=== PATIENT | female | born 1985 ===

== ENCOUNTER 2023-07-21 15:04 | Outpatient (AMB) | payer BC, SELFPAY ==
--- NOTE | 2023-07-21 15:10 | A.OFFVIS_ITS ---
Intake Vital Signs 07/21/23 15:14 Height 6 ft 3 in Weight 326 lb BMI 40.7 BP 126/74 Blood Pressure Location Rt brachial Position Sitting Pulse 74 Pulse Source Pulse Oximeter Pulse Oximetry (%) 99 Oxygen Delivery Method Room Air Intake Visit Reasons: E-ANALYSIS INTERN: Migraines w/aura-LVM Intake Note: Patient presents for migraines. patient gets migraines about 15 days per month brought a diary with dates. Allergies No Known Allergies Allergy (Verified 07/21/23 15:15) Medication List - Last Reconciled 07/21/23 by DEIDRA Frederick coQ10 (ubiquinol) (Qunol [place] CoQ10) 100 mg PO BID magnesium 250 mg PO DAILY propranolol ER 80 mg PO BEDTIME sumatriptan succinate take 1 tab at onset of headache; if no relief may repeat 1 tab after at least 2 hrs; max = 4 tabs/24 hr PO ursodiol 200 mg PO BID HPI HPI Comments History of Present Illness Details Right-handed 37-yr-old female presents for new pt evaluation of headache disorder. Pt reports headaches for a long time, but worsened approx 2 yrs ago w/o known c ause. Has not previously seen neurology. No h/o MRI. Pt also endorses:? Chronic back pain- uses a cane, , Mood d/o: anxiety, Sleep d/o: FABIO on CPAP, GI d/o: prone to abd bloating, Constipation- sometimes, Leg Cramps- leg sif sitting still for a while. Family history of migraine or other headache disorder: Mother had migraine. Pertinent denials include: Musculoskeletal disorders or injury, History of concussion/head injury, Respiratory d/o, CV disease Clotting or hematology d/o, Endocrine or metabolic d/o, History of seizure, syncope, or drop attacks GI d/o. Headache questionnaire:? Typical headache characteristics: Prodrome symptoms: May feel clumsy and confused a few hours before headache Aura: Seeing lights, pot/streak of bright light. Rarely can see crescent of light. Pain intensity: [id number], Location, quality, characteristics: Usually behind right eye, less often left eye, or or center. Pressure. Associated symptoms? Photophobia, phonophobia, dizziness, difficulty c oncentrating, word finding difficulties, fatigue, yawning, activity intolerance Postdrome: Slowly subsides, ebbs and flows Triggers: skipping meals, certain loud sounds, stress, sleep deprivation, deh ydration Positional trigger: exacerbates headache. Time of day: Often, not always, 4-5 hours after waking up, Duration and Frequency: 1-4 days. In the last few months- 13- 21 headache days per month. How does headache impact your life? When severe, cannot function in any capacity. Current acute medication use/interventions: Generic Excedrin. Current preventative medication use: Propranolol ER 80mg- not sure if effective. Denies lightheadedness. Mag 500mg qd. Non-pharmacological interventions: Sleep in a dark/quiet room, frequent snacking- marco antonio salty foods help. Occasionally alcohol can help. Lifestyle considerations: Sleep routine: Bedtime: varies, Wake-up time: varies, but typically sleeps 8- 9hrs w/ CPAP. F/b [facility]. Sleep difficulties: sleeping well w/ CPAP. Caffeine use: 1 large cups per day in am. Substance use: Alcohol- twice a month, beer is helpful for the migraine. Exercise:?Physically active around the home. 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 Head: Yes normocephalic Resp Effort & Inspection: normal respiratory effort and able to speak in complete sentences Neuro Other: Photophobia Bilateral posterior cervical tightness Steady gait with cane General: patient oriented x3 Cranial nerves: Yes CN's II-XII intact bilaterally Cognition (Neuro): normal cognition Motor exam (neuro): 5/5 motor strength present throughout Deep tendon reflexes (DTR's): Right triceps reflex intensity grade: 2+, Left triceps reflex intensity grade: 2+, Rt Biceps (C5, C6): 2+, Left biceps reflex intensity grade: 2+, Right brachioradialis reflex intensity grade: 2+, Left brachioradialis reflex intensity grade: 2+, Right patellar reflex intensity grade: 2+ and Left patellar reflex intensity grade: 2+ Coordination: [id number] test normal, tandem gait normal and Romberg test negative Pupils: Normal pupillary reactivity/response: bilateral Psych Appearance: grossly normal Mental Status: mental status grossly normal Speech and movement: Normal speech and movement present Affect: normal affect Attitude: cooperative Thought process: Normal thought process present Assessment & Plan Assessment & Plan (1) Migraine with aura: Code(s): G43.109 - Migraine with aura, not intractable, without status migrainosus (2) Chronic migraine without aura: Code(s): G43.709 - Chronic migraine without aura, not intractable, without status migrainosus (3) Worsening headaches: Code(s): R51.9 - Headache, unspecified Plan Pt advised to undergo brain MRI w/o to assess for secondary etiologies of worsening headaches. For overall headache management: Discussed importance of good self-care, including but not limited to maintaining a healthy diet, adequate fluid intake, adequate sleep, and engaging in regular physical activity. For headache triggers: Track headaches, especially after any treatment regimen changes. Migraine [employer] is one of many headache tracking apps. Light sensitivity tips: Patient may try blue light filtering glasses, green glasses, green light therapy.. Avoid wearing sunglasses inside. For acute headache treatment: Discussed importance of taking acute medications at the first sign of headache, however stressed importance of avoiding acute medication overuse (especially with combined headache medications). Trial Sumatriptan 100mg tab, 1/2 - 1 tab (50-100mg) at onset of headache, may repeat in 2 hours. Max of 2 tabs (200mg) per 24 hours. May adjunct with OTC Tylenol 650mg q 4 hours, Ibuprofen 600mg q 6 hours, or Naproxen 440mg q 12 hrs prn. Potential adverse effects of triptans, including but not limited to nausea, fatigue, chest tightness/tingling (usually passes within a few minutes), medication overuse headaches.s. Previous acute migraine medication trials: Sumatriptan 50mg- ineffective. Acute migraine medication contraindications: None at this time For headache prevention medication: Discussed that preventative medications should be taken routinely as prescribed for best effect, it may take several weeks for full effect to take effect. Start Riboflavin 400mg qam Continue Magnesium 500mg qd. Increase Propranolol ER from 80mg qd to 120mg qd. Previous migraine prevention medication trials: None Migraine prevention medication contraindications: None at this time Pt to follow-up in 3 months or sooner prn. Orders: Orders MR head/brain wo con 07/21/23 R51.9 - Headache, unspecified, E78.5 - Hyperlipidemia, unspecified, E66.01 - Morbid (severe) obesity due to excess calories, G43.109 - Migraine with aura, not intractable, without status migrai nosus Medications: New riboflavin (vitamin B2) 400 mg PO DAILY 30 tabs 6RF 30 days propranolol ER 120 mg PO DAILY 30 caps 3RF 30 days sumatriptan succinate 50 - 100 mg orally at onset of headache, may repeat in 2 hrs PRN; max 2 tabs per day or 4 tabs/week (may take with Ibuprofen or Naproxen) 12 tabs 6RF migraine headache 30 days Coding Level of Care Code New Pt Level 4 (13987) Diagnoses Migraine with aura G43.109 Chronic migraine without aura G43.709 Worsening headaches R51.9
[2023-07-21 15:14] VITALS: BP 126/74; PULSE 74; O2SAT 99; BMI 40.7
== END 2023-07-21 16:32 | disposition home or self-care (01) ==
PROVIDERS: PCP Nurse Practitioner Family; Visit Provider Nurse Practitioner Family
DX: G43.109 Migraine with aura, not intractable, without status migrainosus (principal); G43.709 Chronic migraine without aura, not intractable, without status migrainosus; R51.9 Headache, unspecified
CPT/HCPCS: 99204

== ENCOUNTER → 2023-07-21 15:04 | Outpatient (BNVA) | payer BC, SELFPAY | PROVIDERS: PCP Nurse Practitioner Family; Visit Provider Nurse Practitioner Family ==

== ENCOUNTER 2023-09-07 15:15 | Outpatient (AMB) | payer BC, SELFPAY ==
--- NOTE | 2023-09-07 14:34 | MHC.PC.OV ---
Vital Signs 09/07/23 15:19 Height 6 ft 3 in Weight 338 lb BMI 42.2 BP 118/80 Blood Pressure Location Lt brachial Position Sitting Pulse 84 Pulse Source Pulse Oximeter Pulse Oximetry (%) 96 Oxygen Delivery Method Room Air Intake Visit Reasons: New patient-Migraines Intake Note: Paitent here to establish care Allergies No Known Allergies Allergy (Verified 09/07/23 15:41) Medication List - Last Reconciled 09/07/23 by JAVY Carrera coQ10 (ubiquinol) (Qunol [place] CoQ10) 100 mg PO BID estradiol 1 patch transdermal 2XW magnesium 500 mg PO DAILY propranolol ER 120 mg PO DAILY 30 days riboflavin (vitamin B2) 400 mg PO DAILY 30 days spironolactone 100 mg PO BID sumatriptan succinate 50 - 100 mg orally at onset of headache, may repeat in 2 hrs PRN; max 2 tabs per day or 4 tabs/week (may take with Ibuprofen or Naproxen) 30 days ursodiol 200 mg PO BID Tobacco use date assessed: 09/07/23 Dental Screening Dental Screen Date: 09/07/23 Did you have a dental visit in the last 12 months?: No Did you have a dental problem in the last 6 months where you did not have access to dental care?: No Was dental information given to patient?: Patient has dentist HPI New patient-Migraines HPI Details New pt is here for a PE. 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 Will order labs. Pt sees neurology due to migraines. Pt c/o lower transverse back pain. She reports some pain down her BLE as well. Will order XR and refer to PT. Denies any signs of cauda equina. Pt reports hemorrhoids. She has tried OTC remedies with no relief. Will send hydrocortisone cream. 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 1. Little interest or pleasure in doing things: not at all 2. Feeling down, depressed, or hopeless: several days 3. Trouble falling or staying asleep, or sleeping too much: more than half the days 4. Feeling tired or having little energy: nearly every day 5. Poor appetite or overeating: not at all 6. Feeling bad about yourself - or that you are a failure or have let yourself or your family down: not at all 7. Trouble concentrating on things, such as reading the newspaper or watching television: several days 8. Moving or speaking so slowly that other people could have noticed. Or the opposite - being so fidgety or restless that you have been moving around a lot more than usual: not at all 9. Thoughts that you would be better off or of hurting yourself in some way: not at all Total score: 7 Depression Screening Interpretation: Negative Depression Screening Done: Yes [id number] - PHQ-9 Billing: Yes Source: Developed by Drs. Christophe Fuentes, Kerrie Oconnell, Alonzo Avina and colleagues, with an educational remington from [employer]. Thrive Questionnaire Date Thrive assessed: 09/07/23 I am a: Patient What is your living situation today?: I have a steady place to live Within the past 12 months, did the food you bought not last and you didn't have the money to get more?: Never true Within the past 12 months, did you worry whether your food would run out before you got money to buy more?: Never true Do you have trouble paying for medicines?: No Do you have trouble getting transportation to medical appointments?: No Do you have trouble paying your heating and electricity bill?: No Do you have trouble taking care of your child, family member or friend?: No Do you have trouble with day-to-day activities such as bathing, preparing meals, shopping, managing finances, etc.?: No Are you currently unemployed and looking for a job?: No Are you interested in more education?: No Currently or been in a relationship where the following occur: I choose not to answer this question THRIVE Score: 0 AUDIT C Alcohol Use Questionnaire (AUDIT-C) 1. How often do you have a drink containing alcohol?: 2-4 times a month 2. How many drinks containing alcohol do you have on a typical day when you are drinking?: 1 or 2 3. How often do you have six or more drinks on one occasion?: Never Total Score: 2 Score Reviewed/Action Taken: No GILBERTO-7 AMB Questionnaire GILBERTO-7 Date GILBERTO - 7 assessed: 09/07/23 Feeling nervous, anxious, or on edge: 2 = More than half the days Not being able to stop or control worryin = Several days Worrying too much about different things: 1 = Several days Trouble relaxin = Several days Being so restless that it is hard to sit still: 0 = Not at all Becoming easily annoyed or irritable: 2 = More than half the days Feeling afraid as if something awful might happen: 0 = Not at all Total GILBERTO-7 score (0-4 normal; 5-9 mild; 10-14 moderate; 15-21 severe): 7 Source: Developed by Drs. Christophe Fuentes, Kerrie Oconnell, Alonzo Avina and colleagues, with an educational remington from [employer]. GILBERTO-7 Assessment Billing GILBERTO-7 Assessment Tool: GILBERTO-7 Assessment 65613 Review of Systems Const Denies chills and Denies fever(s) Eyes Denies blurry vision ENT Denies vertigo, Denies dizziness and Denies sore throat Card Denies chest pain at rest, Denies chest pain with activity, Denies diaphoresis, Denies dyspnea and Denies dyspnea on exertion Resp Denies cough, Denies dyspnea, Denies dyspnea on exertion and Denies wheezing GI Denies abdominal pain, Denies melena, Denies hematochezia, Denies constipation, Denies diarrhea and Denies loose stools Denies hematuria Musc Denies numbness and Denies tingling Skin/Breast Denies lesions Neuro Denies vertigo, Denies dizziness, Denies numbness and Denies tingling Psych Denies anxiety, Denies depression, Denies homicidal ideation, Denies suicidal ideation and Denies other (substance abuse) Aller/Immun Denies wheezing Physical exam (Primary Care) Vital Signs: Last Vital Signs Pulse 84 09/07/23 15:19 BP 118/80 09/07/23 15:19 Pulse Ox 96 09/07/23 15:19 Oxygen Delivery Method Room Air 09/07/23 15:19 BMI result Body Mass Index 42.2 Tobacco/Smoking Status: Tobacco use Status Tobacco use date assessed 09/07/23 09/07/23 15:23 Patient Tobacco Use Status Never used Tobacco 09/07/23 14:36 e-Cigarette/Vaping Use Never Used 09/07/23 15:23 Depression Screening Interpretation: Negative Currently or been in a relationship where the following occur: I choose not to answer this question Const General: cooperative Nutritional Appearance: well nourished Orientation/consciousness: patient oriented x3 Limitations: ambulation with cane HENMT Head: Yes normal to inspection, Yes normocephalic and Yes atraumatic Ears: TM's normal bilaterally Eyes General: appearance normal, both eyes and all related structures Alignment and Position: alignment normal and position normal Neck Neck: Yes normal visual inspection and Yes no lymphadenopathy Thyroid: Thyroid normal Resp Effort & Inspection: normal respiratory effort Auscultation: clear to auscultation bilaterally Cardio Rate: regular rate Rhythm: regular rhythm Heart sounds: S1 normal heart sound present, S2 normal heart sound present and no murmurs GI Palpation (GI): Soft to palpation and nontender Auscultation: normal bowel sounds Other: difficult to palpate right testicle, left testicle present, no penile lesions noted. Back/Spine/Pelvis Other: no lower back pain exacerbated with heel and toe walking, neg straight leg raises. Skin Rashes: no rashes Neuro General: patient oriented x3, moves all extremities, no focal motor deficits and deep tendon reflexes 2+ bilaterally Romberg Test: Negative Psych Appearance: grossly normal Mental Status: mental status grossly normal Speech and movement: Normal speech and movement present Affect: normal affect Attitude: cooperative Thought process: Normal thought process present Thought content: Normal thought content present Insight: Good insight present (Psych) Judgement: Good judgement present (Psych) Assessment and Plan Assessment & Plan (1) Lower back pain: Code(s): M54.50 - Low back pain, unspecified Plan: XR ordered, referred to PT (2) Encounter for routine adult physical exam with abnormal findings: Code(s): Z00.01 - Encounter for general adult medical examination with abnormal findings Plan The patient agreed to the use of a manager medical affairs for this encounter. Scribed for JAVY Price by Renetta Kramer manager medical affairs, on 09/07/2023 at 15:30 EST. Orders: Orders Lipid Panel Today Z00.00 - Encounter for general adult medical examination without abnormal findings PT Evaluation and Treatment Today M54.50 - Low back pain, unspecified Complete Blood Count Auto Diff Today Z00.00 - Encounter for general adult medical examination without abnormal findings Comprehensive [place]. Panel Fast Today Z00.00 - Encounter for general adult medical examination without abnormal findings TSH reflex Free T4 Today Z00.00 - Encounter for general adult medical examination without abnormal findings UA CC w/rflx Micro + Cult Today Z00.00 - Encounter for general adult medical examination without abnormal findings XR lumbar spine 2-3V Today M54.50 - Low back pain, unspecified Medications: New hydrocortisone 2.5% 1 appl [place] BID-QID PRN 30 grams 0RF hemorrhoids hydrocortisone 2.5% 1 appl FL BID-QID PRN 30 grams 0RF hemorrhoids Coding Level of Care Code New Pt Prev Care 18-39yr([id number] Diagnoses Lower back pain M54.50 Encounter for routine adult physical exam with abnormal findings Z00.01 Additional Codes GILBERTO-7 Assessment Billing - GILBERTO-7 Assessment Tool: GILBERTO-7 Assessment [id number] ([id number])
[2023-09-07 15:19] VITALS: BP 118/80; PULSE 84; O2SAT 96; BMI 42.2
== END 2023-09-07 15:50 | disposition home or self-care (01) ==
PROVIDERS: PCP Nurse Practitioner Family; Visit Provider Nurse Practitioner Family
DX: Z00.01 Encounter for general adult medical examination with abnormal findings (principal); M54.50 Low back pain, unspecified
CPT/HCPCS: 99213; 99385

== ENCOUNTER 2023-09-09 12:53 | Outpatient (REF) | payer BC, SELFPAY ==
--- NOTE | ~2023-09-09 | XR_ITS ---
EXAMINATION: XR LUMBOSACRAL SPINE CLINICAL INFORMATION: Low back pain. COMPARISON: None available. TECHNIQUE: Three views of the lumbosacral spine. FINDINGS: Facet arthritis in the lower lumbar spine Possible facet arthritis at L5-S1 is difficult to evaluate due to overlying bony structures. Grade 1 retrolisthesis of L5 on S1. Mild multilevel lumbar spondylosis with loss of disc space height at L5-S1. Bilateral sacroiliac joints are maintained. XR/XR lumbar spine 2-3V IMPRESSION: 1. Mild multilevel lumbar spondylosis with loss of disc space height at L5-S1. 2. Facet arthritis in the lower lumbar spine.
[2023-09-09 16:03] LABS: MANUAL DIFF FLAG NO
[2023-09-09 16:31] LABS: Basophils Absolute Auto 0.1 X10*3/uL (0.0-0.2); Basophils Percent Auto 0.8 % (0-2); Eosinophils Absolute Auto 0.5 X10*3/uL (0.0-0.4); Eosinophils Percent Auto 5.5 % (0-4); Hematocrit 44.7 % (37.0-47.0); Hemoglobin 14.9 g/dl (12.0-16.0); Imm Gran Abs Auto 0.04 X10*3/uL (0.00-0.03); Imm Gran Pct Auto 0.4 % (0.0-0.4); Lymphocytes Absolute Auto 2.1 X10*3/uL (1.2-4.9); Lymphocytes Percent Auto 23.2 % (20-40); Mean Corpuscular HGB Conc 33.3 g/dl (31.0-35.0); Mean Corpuscular Volume 89.9 fL (80.0-98.0); Mean Platelet Volume 10.2 fL (9.4-12.3); Monocytes Absolute Auto 0.8 X10*3/uL (0.1-1.2); Monocytes Percent Auto 8.7 % (2-11); Neutrophils Absolute Auto 5.7 x10*3/uL (2.0-8.3); Neutrophils Percent Auto 61.4 % (45-73); Platelet Count 338 X10*3/uL (160-400); Red Blood Count 4.97 X10*6/uL (4.20-5.50); Red Cell Distribution Width 13.1 % (11.0-16.0); White Blood Count 9.2 X10*3/uL (4.8-10.8)
[2023-09-09 16:38] LABS: Appearance Urine Clear; Color Urine Yellow; Glucose Urine UA Negative (Negative); Leukocyte Esterase Urine Negative (Negative); Nitrite Urine Negative (Negative); PH 6.5 (5.0-9.0); Specific Gravity - Urine <= 1.005 (1.005-1.025); Urine Blood Negative (Negative); Urine Ketones Negative (Negative); Urine Protein Negative (Neg-Trace)
[2023-09-09 16:49] LABS: Alanine Aminotransferase 50 U/L (0-31); Albumin Level 4.5 g/dL (3.5-5.0); Alkaline Phosphatase 70 U/L (39-117); Anion Gap 13 (12-20); Aspartate Amino Transferase 27 U/L (5-31); Bilirubin Total 0.6 mg/dL (0.0-1.0); Blood Urea Nitrogen 11 mg/dL (9-16); Calcium 10.1 mg/dL (8.4-10.2); Carbon Dioxide 26 mmol/L (22-29); Chloride 104 mmol/L (96-108); Cholesterol 193 mg/dL (<200); Estimated Glomerular Filt Rate > 60; Glucose Fasting 114 mg/dL (60-99); HDL Cholesterol 39 mg/dL (>40); LDL Cholesterol Calculated 114 mg/dL (<100); Potassium 4.4 mmol/L (3.3-5.1); Sodium 139 mmol/L (135-145); Total Protein 7.9 g/dL (6.5-8.0); Triglycerides 202 mg/dL (<150)
[2023-09-09 17:07] LABS: TSH reflex Free T4 1.72 uIU/mL (0.32-4.0)
== END 2023-09-09 12:54 | disposition home or self-care (01) ==
LOC: HO.HMGCX 12:53
PROVIDERS: PCP Nurse Practitioner Family; Visit Provider Nurse Practitioner Family
DX: Z00.00 Encounter for general adult medical examination without abnormal findings (principal); M54.50 Low back pain, unspecified
CPT/HCPCS: 36415; 72100; 80053; 80061; 81003; 84443; 85025

== ENCOUNTER 2023-10-07 11:19 | Outpatient (REF) | payer BC, SELFPAY ==
--- NOTE | ~2023-10-07 | US_ITS ---
EXAMINATION: US ABDOMEN COMPLETE CLINICAL INFORMATION: Abnormal levels of other serum enzymes. COMPARISON: None available. TECHNIQUE: Real-time imaging of the abdominal viscera. Technically suboptimal study secondary to body habitus. FINDINGS: PANCREAS: Limited visualization of pancreatic tail and head. Imaged portion of pancreatic body is unremarkable. ABDOMINAL AORTA: Limited visualization. Imaged portions of abdominal aorta are unremarkable. INFERIOR VENA CAVA: Visualized portions are normal. LIVER: Right hepatic lobe measures 21.7 cm, hepatomegaly. Increased hepatic parenchymal heterogeneity and echogenicity could be associated with hepatocellular disease/hepatic steatosis and severely limits visualization. Correlation with liver function tests and clinical exam recommended to determine further management. GALLBLADDER: Multiple gallstones measuring up to 2.5 cm. No gallbladder wall thickening. COMMON BILE DUCT: Normal in caliber measuring 0.44 cm in diameter. RIGHT KIDNEY: No hydronephrosis. No renal calculi. Limited visualization. The kidney measures 13.0 cm in maximum dimension. LEFT KIDNEY: No hydronephrosis. No renal calculi. Limited visualization. The kidney measures 12.8 cm in maximum dimension. SPLEEN: Normal. The spleen measures 11.7 cm in maximum dimension. FREE FLUID: None. US/US abdomen complete IMPRESSION: 1. Hepatomegaly. Increased hepatic parenchymal heterogeneity and echogenicity could be associated with hepatocellular disease/hepatic steatosis and severely limits visualization. Correlation with liver function tests and clinical exam recommended to determine further management. 2. Cholelithiasis.
== END 2023-10-07 11:20 | disposition home or self-care (01) ==
LOC: HO.HMGCX 11:19
PROVIDERS: PCP Nurse Practitioner Family; Visit Provider Nurse Practitioner Family
DX: R74.8 Abnormal levels of other serum enzymes (principal)
CPT/HCPCS: 76700

== ENCOUNTER 2023-11-01 07:29 | Outpatient (AMB) | payer BC, SELFPAY ==
--- NOTE | 2023-11-01 07:34 | A.OFFVIS_ITS ---
Vital Signs 11/01/23 07:35 Height 6 ft 3 in Intake Visit Reasons: 3 mon follow up-LVM Intake Note: Patient presents for 3 month follow up. Migraines are continuing not any better. Allergies No Known Allergies Allergy (Verified 11/01/23 07:40) Medication List - Last Reconciled 11/01/23 by DEIDRA Frederick coQ10 (ubiquinol) (Qunol [place] CoQ10) 100 mg PO BID estradiol 4 patches transdermal 2XW hydrocortisone 2.5% 1 appl GA BID-QID PRN magnesium 500 mg PO DAILY propranolol ER 120 mg PO DAILY 30 days riboflavin (vitamin B2) 400 mg PO DAILY 30 days spironolactone 100 mg PO BID sumatriptan succinate 50 - 100 mg orally at onset of headache, may repeat in 2 hrs PRN; max 2 tabs per day or 4 tabs/week (may take with Ibuprofen or Naproxen) 30 days ursodiol 200 mg PO BID HPI Comments Details: 37-yr-old female presents for f/u visit. Pt denies any significant interval medical changes. Brain MRI was normal. Pt reports she is tolerating the increase in Propranolol well, however has not noticed significant benefit from use. She continues to have frequent migraine attacks- 25 migraine days in the past month, some were not as severe as prior. Sumatriptan 100mg has been effective at times, but does cause drowsiness and muscle aches. Ibuprofen helps the muscle aches- but does not fully nicci them. Baseline headache characteristics: Prodrome symptoms: May feel clumsy and confused a few hours before headache Aura: Seeing lights, pot/streak of bright light. Rarely can see crescent of light. Pain intensity: [id number]-[id number]-[id number]. Location, quality, characteristics: Usually behind right eye, less often left eye, or or center. Pressure. Associated symptoms: Photophobia, phonophobia, dizziness, difficulty concentrating, word finding difficulties, fatigue, yawning, activity intolerance Postdrome: Slowly subsides, ebbs and flows. [facility] Medical History Transgender woman on hormone therapy HLD (hyperlipidemia) Family History (Reviewed 11/01/23 @ 07:41 by Cydney Thao [facility]) Father HTN (hypertension) Social History Housing: House Alcohol intake: current Patient Tobacco Use Status: Never used Tobacco e-Cigarette/Vaping Use: Never Used service: No Current occupational status: employed Current occupational exposures/hazards: No Cognitive needs: No Hearing needs: No Vision needs: No Physical Exam Const General: cooperative and no acute distress Orientation/consciousness: patient oriented x3 Resp Effort & Inspection: normal respiratory effort and able to speak in complete sentences Neuro Other: Photophobic General: patient oriented x3 Cranial nerves: Yes CN's II-XII intact bilaterally Cognition (Neuro): normal cognition Psych Appearance: grossly normal Mental Status: mental status grossly normal Speech and movement: Normal speech and movement present Affect: normal affect Attitude: cooperative Assessment & Plan Assessment & Plan (1) Chronic migraine without aura: Code(s): G43.709 - Chronic migraine without aura, not intractable, without status migrainosus Category: Medical (2) Migraine with aura: Code(s): G43.109 - Migraine with aura, not intractable, without status migrainosus Category: Medical Plan Reviewed brain MRI- normal ? For overall headache management: Discussed importance of good self-care, including but not limited to maintaining a healthy diet, adequate fluid intake, adequate sleep, and engaging in regular physical activity. For headache triggers: Track headaches, especially after any treatment regimen changes. Migraine [employer] is one of many headache tracking apps. Light sensitivity tips: Patient may try blue light filtering glasses, green glasses, green light therapy.. Avoid wearing sunglasses inside. ? For acute headache treatment: Discussed importance of taking acute medications at the first sign of headache, however stressed importance of avoiding acute medication overuse (especially with combined headache medications). Stop Sumatriptan 100mg tab- not always effective and causes drowsiness/muscle aches. Trial Rizatriptan 10mg prn, MR in 2 hrs. Previous acute migraine medication trials: Sumatriptan 50mg- ineffective. Sumatriptan 100mg tab- not always effective and causes drowsiness/muscle aches. Acute migraine medication contraindications: None at this time ? For headache prevention medication: Continue Riboflavin 400mg qam Continue Magnesium 500mg qd. Continue Propranolol ER 120mg qd- would not increase further d/t HR in 60s. Trial topiramate 25-50mg qhs. Previous migraine prevention medication trials: None Migraine prevention medication contraindications: None at this time, however pt cuatious to try medications such as Amitriptyline which can cause drowsiness. ? Pt to follow-up in 6 months or sooner prn. Medications: New rizatriptan max 2 tabs per day or 4 tabs per week 5 - 10 mg (0.5 - 1 x 10 mg) PO Q2H 21 days PRN 12 tabs 6RF migraine headache topiramate 25 - 50 mg (1 - 2 x 25 mg) PO BEDTIME 30 days 60 tabs 6RF Refilled propranolol ER 120 mg PO DAILY 30 days 30 caps 6RF Coding Level of Care Code Est Pt Level 4 (49991) Diagnoses Chronic migraine without aura G43.709 Migraine with aura G43.109
== END 2023-11-01 08:14 | disposition home or self-care (01) ==
PROVIDERS: PCP Nurse Practitioner Family; Visit Provider Nurse Practitioner Family
DX: G43.709 Chronic migraine without aura, not intractable, without status migrainosus (principal); G43.109 Migraine with aura, not intractable, without status migrainosus
CPT/HCPCS: 99214

== ENCOUNTER → 2023-11-01 07:29 | Outpatient (BNVA) | payer BC, SELFPAY | PROVIDERS: PCP Nurse Practitioner Family; Visit Provider Nurse Practitioner Family ==

== ENCOUNTER 2024-01-17 15:00 | Outpatient (RCR) | payer BC, SELFPAY ==
--- NOTE | 2023-12-16 13:38 | MHC.PT.EP ---
[facility] [place] Office [place] Office [place] Office [address] Adele Willis [address] [phone] F: [phone] F: [phone] F: [phone] F: [phone] Physical Therapy Plan of Care Date of Evaluation: 12/16/23 Date of Surgery: n/a Diagnosis: low back pain Assessment: Patient is a 38 year old presenting to PT with complaints of pain in the low back. Pt reports onset of pain began 1-2 years ago due to insidious onset. Pt presents today with impairments in pain, ROM, hip strength, core strength. 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 Pt expresses manager terminal goal of reducing pain, and is motivated to work towards this in PT. Clinical presentation today is most consistent with signs and sx associated with low back pain and pt will benefit from skilled PT 2 week x 4 weeks to address the following problems and impairments noted upon evaluation: pain, ROM, hip strength, core strength. These problems limit the patient with the following functional activities: work, ADLs, bending, standing, ambulating. The prescribed treatment plan of care is medically necessary. Co-morbidities of none were identified and taken into considerations of plan of care. Pt was educated on HEP, role of PT, prognosis, POC. Frequency and Duration: The patient will be seen 2 x week x 4 weeks Short Term Goals: Pt will demonstrate ability to move through lumbar ROM in available range with min to no pain in 2 weeks. Pt will demonstrate improved hip MMT strength by 1/3 grade in 2 weeks for improved lumbopelvic stability. Mcfp Goals: Pt will demonstrate improved Roc score by 10% in 4 weeks for improved functional mobility. Pt will demonstrate ability to stand and ambulate with min to no pain in 4 weeks for improved access to the community. Pt will demonstrate ability to bend with min to no pain in 4 weeks for improved tolerance to ADLs and and household activities. Treatment Plan: Modalities to reduce pain, spasms and effusion. Manual therapy to restore motion and function. Therapeutic exercise to improve strength and flexibility. Neuromuscular re-education for posture and balance. Therapeutic activities to return to functional activities of daily living. Electronically signed by: Karishma Paula, PT, DPT, ATC Please sign and return to therapist. Thank you for your referral.
--- NOTE | 2024-02-28 13:21 | MHC.PT.DC ---
[facility] [place] Office [place] Office [place] Office [address] Adele Willis 140 [facility] [phone] F: [phone] F: [phone] F: [phone] F: [phone] Physical Therapy Discharge Report Diagnosis: low back pain Date of Surgery: n/a Date of Evaluation: 12/16/23 Date of Discharge: 02/28/24 Treatments to Date: 4 Cancellations to Date: 2 No Shows to Date: 0 Discharge Status: Discharge Summary: Pt has not attended skilled PT in >30 days and therefore to be d/c. Electronically signed by: Karishma Paula, PT, DPT, ATC Please sign and return to therapist. Thank you for your referral.
== END 2024-02-28 13:22 | disposition home or self-care (01) ==
LOC: HO.PTCHIC 15:00
PROVIDERS: PCP Nurse Practitioner Family; Visit Provider Nurse Practitioner Family
DX: M54.50 Low back pain, unspecified (principal)
CPT/HCPCS: 97110; 97161

== ENCOUNTER 2024-03-13 09:55 | Outpatient (AMB) | payer BC, SELFPAY ==
[2024-03-13 09:56] VITALS: BP 130/88; PULSE 81; O2SAT 100; BMI 43.1
--- NOTE | 2024-03-13 09:56 | A.OFFPC_ITS ---
Vital Signs 03/13/24 09:56 Height 6 ft 3 in Weight 344 lb 8 oz BMI 43.1 BP 130/88 Blood Pressure Location Rt brachial Position Sitting Pulse 81 Pulse Source Pulse Oximeter Pulse Oximetry (%) 100 Oxygen Delivery Method Room Air Intake Visit Reasons: 6 month follow up Intake Note: Pt presents to the office today for a 6 month follow up. Pt states she's overall feeling well. Allergies No Known Allergies Allergy (Verified 03/13/24 09:59) Tobacco use date assessed: 03/13/24 Dental Screening Dental Screen Date: 03/13/24 Did you have a dental visit in the last 12 months?: No Did you have a dental problem in the last 6 months where you did not have access to dental care?: No Was dental information given to patient?: Patient declined HPI 6 month follow up HPI Details pt reports having a small singular lesion to upper sternal region. Reports it is somewhat pruritic. Reports a antifungal shampoo was helping. #2 recent abd us for elevated liver enzymes. large gallstone noted (2.5cm). Pt reports having severe biliary colic previously, ursodiol helped, pt does report some RUQ discomfort after eating fatty meals, nothing major. denies any fevers, chills, N/V, constipation/diarrhea. ON LICENSE OF [facility] Medical History Transgender woman on hormone therapy HLD (hyperlipidemia) Family History Father HTN (hypertension) Social History Housing: House Alcohol intake: current Patient Tobacco Use Status: Never used Tobacco e-Cigarette/Vaping Use: Never Used service: No Current occupational status: employed Current occupational exposures/hazards: No Cognitive needs: No Hearing needs: No Vision needs: No Questionnaire PHQ-9 Over the last 2 weeks, how often have you been bothered by any of the following problems? 1. Little interest or pleasure in doing things: not at all 2. Feeling down, depressed, or hopeless: not at all 3. Trouble falling or staying asleep, or sleeping too much: more than half the days 4. Feeling tired or having little energy: several days 5. Poor appetite or overeating: not at all 6. Feeling bad about yourself - or that you are a failure or have let yourself or your family down: not at all 7. Trouble concentrating on things, such as reading the newspaper or watching television: not at all 8. Moving or speaking so slowly that other people could have noticed. Or the opposite - being so fidgety or restless that you have been moving around a lot more than usual: not at all 9. Thoughts that you would be better off or of hurting yourself in some w ay: not at all Total score: 3 Depression Screening Interpretation: Negative Depression Screening Done: Yes 69870 - PHQ-9 Billing: Yes Source: Developed by Drs. Christophe Fuentes, Kerrie Oconnell, Alonzo Avina and colleagues, with an educational remington from [employer]. Thrive Questionnaire Date Thrive assessed: 03/06/24 I am a: Patient What is your living situation today?: I have a steady place to live Within the past 12 months, did the food you bought not last and you didn't have the money to get more?: Never true Within the past 12 months, did you worry whether your food would run out before you got money to buy more?: Never true Do you have trouble paying for medicines?: No Do you have trouble getting transportation to medical appointments?: No Do you have trouble paying your heating and electricity bill?: No Do you have trouble taking care of your child, family member or friend?: No Do you have trouble with day-to-day activities such as bathing, preparing meals, shopping, managing finances, etc.?: No Are you currently unemployed and looking for a job?: No Are you interested in more education?: No Please select the resources that you would like help with: None Currently or been in a relationship where the following occur: No concerns reported THRIVE Score: 0 AUDIT C Alcohol Use Questionnaire (AUDIT-C) 1. How often do you have a drink containing alcohol?: Monthly or less 2. How many drinks containing alcohol do you have on a typical day when you are drinking?: 1 or 2 3. How often do you have six or more drinks on one occasion?: Never Total Score: 1 GILBERTO-7 AMB Questionnaire GILBERTO-7 Date GILBERTO - 7 assessed: 03/13/24 Feeling nervous, anxious, or on edge: 1 = Several days Not being able to stop or control worryin = Not at all Worrying too much about different things: 0 = Not at all Trouble relaxin = Several days Being so restless that it is hard to sit still: 0 = Not at all Becoming easily annoyed or irritable: 2 = More than half the days Feeling afraid as if something awful might happen: 0 = Not at all Total GILBERTO-7 score (0-4 normal; 5-9 mild; 10-14 moderate; 15-21 severe): 4 Source: Developed by Drs. Christophe Fuentes, Kerrie Oconnell, Aolnzo Avina and colleagues, with an educational remington from [employer]. GILBERTO-7 Assessment Billing GILBERTO-7 Assessment Tool: GILBERTO-7 Assessment 98469 Physical exam (Primary Care) Vital Signs: Last Vital Signs Pulse 81 03/13/24 09:56 BP 130/88 03/13/24 09:56 Pulse Ox 100 03/13/24 09:56 Oxygen Delivery Method Room Air 03/13/24 09:56 BMI result Body Mass Index 43.1 Tobacco/Smoking Status: Tobacco use Status Tobacco use date assessed 03/13/24 03/13/24 10:02 Patient Tobacco Use Status Never used Tobacco 03/13/24 10:02 e-Cigarette/Vaping Use Never Used 03/13/24 10:02 PHQ-9: PHQ-9 Score PHQ-9: Total score 3 03/13/24 10:02 Depression Screening Interpretation: Negative Thrive Assessment: Date of Thrive Assessment Date Thrive assessed 03/06/24 03/13/24 10:02 Currently or been in a relationship where the following occur: No concerns reported Const General: cooperative, healthy appearing, comfortable and no acute distress Resp Effort & Inspection: normal respiratory effort Auscultation: clear to auscultation bilaterally Cardio Rate: regular rate Rhythm: regular rhythm Heart sounds: S1 normal heart sound present and S2 normal heart sound present GI Other: + bs, no rebound tenderness with palpation of RUQ. Skin Other: upper sternal region with faint erythematous macular lesion (small). 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) Psych Affect: normal affect Attitude: cooperative Thought process: Normal thought process present Thought content: Normal thought content present Insight: Good insight present (Psych) Judgement: Good judgement present (Psych) Coding Level of Care Code Est Pt Level 3 (98535) Diagnoses Gallstones K80.20 Dermatitis L30.9 Additional Codes GILBERTO-7 Assessment Billing - GILBERTO-7 Assessment Tool: GILBERTO-7 Assessment 57481 ([id number]) PHQ-9 - 93285 - PHQ-9 Billing: Yes ([id number]) Assessment & Plan Assessment & Plan (1) Gallstones: Code(s): K80.20 - Calculus of gallbladder without cholecystitis without obstruction Category: Medical Plan: repeat US in 6 months, pt enouraged to abstain from a fatty diet, go to the ER with any worsening symptoms. (2) Dermatitis: Code(s): L30.9 - Dermatitis, unspecified Category: Medical Plan cream sent Orders: Orders US abdomen limited 6 Months K80.20 - Calculus of gallbladder without cholecystitis without obstruction Medications: New clotrimazole-betamethasone 1-0.05 % 1 appl topical BID 2 weeks 45 grams 0RF
== END 2024-03-13 10:28 | disposition home or self-care (01) ==
PROVIDERS: PCP Nurse Practitioner Family; Visit Provider Nurse Practitioner Family
DX: K80.20 Calculus of gallbladder without cholecystitis without obstruction (principal); L30.9 Dermatitis, unspecified

== ENCOUNTER → 2024-03-13 09:55 | Outpatient (BNVA) | payer BC, SELFPAY | PROVIDERS: PCP Nurse Practitioner Family; Visit Provider Nurse Practitioner Family | DX: K80.20 Calculus of gallbladder without cholecystitis without obstruction (principal); L30.9 Dermatitis, unspecified | CPT/HCPCS: 96127 ==

== ENCOUNTER 2024-05-18 08:04 | Outpatient (AMB) | payer BC, SELFPAY ==
--- NOTE | 2024-05-18 08:05 | A.OFFVIS_ITS ---
Vital Signs 05/18/24 08:06 Height 6 ft 3 in Weight 384 lb 4 oz BMI 48.0 BP 120/82 Blood Pressure Location Lt brachial Position Sitting Pulse 73 Pulse Source Pulse Oximeter Pulse Oximetry (%) 97 Oxygen Delivery Method Room Air Intake Visit Reasons: 6 Month f/u Intake Note: patient present for follow up migraine Allergies No Known Allergies Allergy (Verified 05/18/24 08:10) Medication List - Last Reconciled 05/18/24 by DEIDRA Frederick clotrimazole-betamethasone 1-0.05 % 1 appl topical BID 2 weeks coQ10 (ubiquinol) (Qunol [place] CoQ10) 100 mg PO BID estradiol 4 patches transdermal 2XW hydrocortisone 2.5% 1 appl CA BID-QID PRN loratadine (Claritin) 10 mg PO DAILY magnesium 500 mg PO DAILY propranolol ER 120 mg PO DAILY 30 days riboflavin (vitamin B2) 400 mg PO DAILY 30 days rizatriptan 5 - 10 mg (0.5 - 1 x 10 mg) PO Q2H PRN 21 days spironolactone 100 mg PO BID ursodiol 500 mg (2.5 x 200 mg) PO BID 30 days HPI Comments Details: 38-yr-old female presents for f/u visit for migraine. Pt denies any significant interval medical changes. Pt reports she is continuing to 14 to 28 migraine days per month. She did try topiramate however it caused irritability with acute days, which resolved upon stopping it. She is compliant with propranolol ER- though notes that she accidentally missed taking it for 3 days in January, which resulted in her feeling quite not well. She has started rizatriptan, which she states is more effective and better tolerated than sumatriptan. Though, the rizatriptan does cause some muscle soreness, which she treats with either ibuprofen 400 mg or naproxen 440 mg which helps. Patient does endorse intermittent constipation and leg cramps. Baseline headache characteristics: Prodrome symptoms: May feel clumsy and confused a few hours before headache Aura: Seeing lights, pot/streak of bright light. Rarely can see crescent of light. Pain intensity: Brrb-Osc-Grftrc. Location, quality, characteristics: Usually behind right eye, less often left eye, or or center. Pressure. Associated symptoms: Photophobia, phonophobia, dizziness, difficulty concentrating, word finding difficulties, fatigue, yawning, activity intolerance Postdrome: Slowly subsides, ebbs and flows. 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 on hormone therapy HLD (hyperlipidemia) Family History Father HTN (hypertension) Social History Housing: House Alcohol intake: current Patient Tobacco Use Status: Never used Tobacco e-Cigarette/Vaping Use: Never Used service: No Current occupational status: employed Current occupational exposures/hazards: No Cognitive needs: No Hearing needs: No Vision needs: No Physical Exam Vital Signs: Last Vital Signs Pulse 73 05/18/24 08:06 BP 120/82 05/18/24 08:06 Pulse Ox 97 05/18/24 08:06 Oxygen Delivery Method Room Air 05/18/24 08:06 BMI result Body Mass Index 48.0 Const General: cooperative and no acute distress Orientation/consciousness: patient oriented x3 Resp Effort & Inspection: normal respiratory effort and able to speak in complete sentences Neuro Other: Photophobic Steady gait with cane. General: patient oriented x3 Cranial nerves: Yes CN's II-XII intact bilaterally Cognition (Neuro): normal cognition Psych Appearance: grossly normal Mental Status: mental status grossly normal Speech and movement: Normal speech and movement present Affect: normal affect Attitude: cooperative Assessment & Plan Assessment & Plan (1) Chronic migraine without aura: Code(s): G43.709 - Chronic migraine without aura, not intractable, without status migrai nosus Category: Medical (2) Migraine with aura: Code(s): G43.109 - Migraine with aura, not intractable, without status migrainosus Category: Medical (3) Muscle cramps: Code(s): R25.2 - Cramp and spasm Category: Medical Plan For overall headache management: Continue to optimize good self-care, including but not limited to maintaining a healthy diet, adequate fluid intake, adequate sleep, and engaging in regular physical activity. For headache triggers: Track headaches, especially after any treatment regimen changes. [employer] is one of many headache tracking apps. Light sensitivity tips: Patient may try blue light filtering glasses, green glasses, green light therapy.. Avoid wearing sunglasses inside. ? For acute headache treatment: Discussed importance of taking acute medications at the first sign of headache, however stressed importance of avoiding acute medication overuse (especially with combined headache medications). Continue Rizatriptan 10mg prn, MR in 2 hrs. May adjunct with NSAID for muscle aches. Trial of diclofenac 50 mg p.o. at onset of migraine, be take with rizatriptan, may repeat in 12 hours, max of 100 mg per day. Previous acute migraine medication trials: Sumatriptan 50mg- ineffective. Sumatriptan 100mg tab- not always effective and causes drowsiness/muscle aches. Acute migraine medication contraindications: None at this time ? For headache prevention medication: Continue Riboflavin 400mg qam Continue Magnesium 500mg qd. Continue Propranolol ER 120mg qd- would not increase further d/t HR in 60s. Discontinue topiramate 25 mg q.h.s.-cause irritability. Start Emgality 120mg/ml auto-injection: Loading dose: 240mg (2 120mg/ml auto-injections) via subcutaneous injection in 2 different sites). Then 30 days after loading dose, start Maintenance dose: 120mg (120mg/ml autoinjector) subcutaneous injection every month. Patient requests injection training once Emgality available. Important considerations: * Emgality will likely require insurance prior authorization prior to receiving it from the pharmacy. * Potential side effects include allergic reaction and injection site reactions. * Emgality injection training educational video is available to view on [employer] * Store Emgality in the refrigerator in it's original packaging in order to protect from light. * Remove Emgality at least 1 hour prior to taking the injection. * Emgality can be left out of the fridge for?up to 7 days at a temperature not above 86?F. If either of these conditions are exceeded, then Emgality must be thrown away. * Once Emgality has been stored out of refrigeration, do not place it back in the refrigerator. Previous migraine prevention medication trials: topiramate 25 mg q.h.s.-cause irritability Migraine prevention medication contraindications: Would avoid Aimovig due to intermittent constipation and read cramps. ? Pt to follow-up in 6 months or sooner prn. Medications: New galcanezumab-gnlm (Emgality Pen) Loading dose: 120 mg subcu injection x2 in alternate sites (total 240 mg). To be followed by maintenance dose of 120 mg subcu q.month. 240 mg (2 mL) subcut ONCE 2 mL 0RF 30 days diclofenac potassium 50 mg PO BID PRN 60 tabs 1RF pain 30 days Coding Level of Care Code Est Pt Level 4 (74402) Diagnoses Chronic migraine without aura G43.709 Migraine with aura G43.109 Muscle cramps R25.2
[2024-05-18 08:06] VITALS: BP 120/82; PULSE 73; O2SAT 97; BMI 48.0
--- OUTSIDE RECORDS SUMMARY | 2024-05-18 08:06 | XMS_ITS | Clinical Summary ---
Author Organization [employer] Address [address] [place] [address] [address] [place] [address] Care Team Providers Care Data Reviewer Name Role Phone Dwayne Nathan NP Primary Care Provider [phone] Allergies No known active allergies Medications * This document contains information received from the source organization and may not represent a complete record from that organization. hydrocortisone (Anusol-HC) 2.5 % rectal cream Apply topically. 0 Active lidocaine (Xylocaine) 5 % ointment lidocaine 5% ointment 0 Active progesterone 100 MG capsule Take by mouth. 0 Active propranolol LA (Inderal LA) 80 MG 24 hr capsule TAKE 1 CAPSULE (80 MG) BY MOUTH IN THE MORNING. DO NOT CRUSH, CHEW, OR SPLIT. 90 capsule 1 3 Active SUMAtriptan (Imitrex) 50 MG tablet TAKE 1 TABLET (50 MG) BY MOUTH 1 (ONE) TIME IF NEEDED FOR MIGRAINE FOR UP TO 18 DOSES. MAY REPEAT DOSE ONCE IN 2 HOURS IF NO RELIEF. DO NOT EXCEED 2 DOSES IN 24 HOURS. 9 tablet 2 3 Active spironolactone (Aldactone) 100 MG tablet TAKE 1 TABLET (100MG) BY MOUTH TWICE DAILY. 180 tablet 1 4 Active estradiol (Minivelle) 0.1 MG/24HRIndicati ons:Hormone disorder APPLY 4 PATCH TO SKIN TWICE A WEEK 32 patch 5 4 Active ursodiol (Actigall) 500 MG tablet TAKE 1 TABLET (500MG) BY MOUTH TWICE DAILY. 180 tablet 4 Active Active Problems Problem Noted Date Diagnosed Date Migraine headache 11/18/2021 Assessment & Plan (09/06/2022 6:58 PM EDT): -Ongoing migraine w/ intermittent aura that is episodic throughout a large portion of the month. Pt has noticed decreased intensity and frequency of symptoms since starting propranolol as prophylactic. -Denies any changes in quality or frequency of migraine -VSS in clinic today- she is neurologically intact w/o focal deficit -I will switch from propanolol IR to propranolol ER-- increase from 60mg to 80mg. Reviewed proper administration, potential SE -Will also start triptan as needed for abortive. Reviewed proper admin, potential SE -Reviewed adequate headache hygiene with patient -Follow up 2-3 months or sooner as needed Calculus of gallbladder 11/27/2020 Back pain 03/24/2020 External hemorrhoids 03/24/2020 Fatigue 12/07/2019 Viral upper respiratory tract infection 03/13/20 19 Elevated C-reactive protein 2018 Knee pain 11/10/2018 Morbid (severe) obesity due to excess calories 0 11/10/2018 Obstructive sleep apnea syndrome 03/15/2018 Overview (09/03/2022): dx'd sleep study 02/2018 Steatosis of liver 09/07/2017 Elevated liver enzymes 08/19/2017 Hyperlipidemia 08/19/2017 Hormone disorder 08/19/2016 Seasonal allergies 12/25/2015 Generalized anxiety disorder 05/20/2014 Agenesis and aplasia of cervix 01/07/2014 Encounters Date Type Department Care Team Description 04/13/2024 Refill [facility] [address] [place] [address] Dwayne Nathan NP 02/29/2024 Refill [facility] [address] [place] [address] Dwayne Nathan, KANA Hormone disorder from Last 3 Months Immunizations Name Administration Dates Next Due Influenza, IIV3, injectable 02/04/2015 Influenza, seasonal, intradermal, preservative f ree 04/08/2017,02/19/2016 Pfizer Covid-19 Vaccine 12+ 07/17/2020, 1 Family History Medical History Relation Name Comments Hypertension Father Maxi Sapp Vision loss Paternal Grandmother Eli Sapp Relation Name Status Comments Father Maxi Sapp Paternal Grandmother Eli Sapp Social History Tobacco Use Types Packs/Day Years Used Date Smoking Tobacco: Former Pipe Smokeless Tobacco: Never Tobacco Cessation:Counseling Given: Yes Comments:Hookah only. That wasn't an option on your list. It can't be measured by the pack so ignore that Alcohol Use Standard Drinks/Week Comments Yes 0 (1 standard drink = 0.6 oz pure alcohol) Less than 1 per week average. No more than 2 at a time. Sex and Gender Information Value Date Recorded Sex Assigned at Male 02/12/2022 3:58 PM EDT Legal Sex Female 3:58 PM EDT Gender Identity Female 02/12/2022 3:58 PM EDT Sexual Orientation Lesbian 08/30/2022 8: 42 AM EDT Last Filed Vital Signs Vital Sign Reading Time Taken Comments Blood Pressure 120/76 09/06/2022 2:44 PM EDT Pulse 82 09/06/2022 2:44 PM EDT Temperature 37.1 ??C (98.7 ??F) 09/06/2022 2:44 PM ED T Respiratory Rate - - Oxygen Saturation 98% 09/06/2022 2:44 PM EDT Inhaled Oxygen Concentration - - Weight 151 kg (332 lb 9.6 oz) 09/06/2022 2:44 PM EDT Height 191.3 cm (6' 3.3 ) 09/06/2022 2:44 PM EDT Body Mass Index 41.24 09/06/2022 2:44 PM EDT Plan of Treatment Health Maintenance Due Date Last Done Comments Depression Screening 1985 HIV Screening 1985 Lipid Panel 1985 SDOH Screening 1985 Alcohol/Substance Use Screening 1997 Family Planning (PISQ) 2000 Hepatitis C Screening 11/14/2003 Hepatitis A Vaccines (1 of 2 - Risk 2-dose series) 2004 Hepatitis B Vaccines (1 of 3 - 19+ 3-dose series) 2004 COVID-19 Vaccine ( season) 2023 07/17/2020, 06/25/2020 Influenza Vaccine (#1) 2023 8, 04/08/2017, 02/19/2016, Additional history exists Tobacco Screening 03/07/2024 03/07/2023 DTaP/Tdap/Td Vaccines (2 - Td or Tdap) 04/08/2027 04/08/2017 Zoster Vaccines (1 of 2) 11/14/2035 RSV Patients and Patients Aged 60 years or older (1 - 1-dose 75+ series) 2060 HIB Vaccines Aged Out No longer eligi ble based on patient's age to complete this topic HPV Vaccines Aged Out No longer eligi ble based on patient's age to complete this topic IPV Vaccines Aged Out No longer eligi ble based on patient's age to complete this topic Meningococcal Vaccine Aged Out No janay jerrod eligible based on patient's age to complete this topic Pneumococcal Vaccine: Pediatrics (0 to 5 Years) and At-Risk Patients (6 to 49) Years) Aged Out No longer eligible based on patient's age to complete this topic RSV under 20 months Aged Out No longe r eligible based on patient's age to complete this topic Rotavirus Vaccines Aged Out No longer eligible based on patient's age to complete this topic Insurance POS Care Teams Data Reviewer Relationship Specialty Start Date End Date Dwayne Nathan NP [address] [place] [address] PCP - General Family Medicine 05/18/22
--- OUTSIDE RECORDS SUMMARY | 2024-05-18 08:06 | XMS_ITS | Encounter Summary ---
Author Organization [employer] Address [address] [place] [address] [address] [place] [address] Care Team Providers Care Under Sheriff Name Role Phone Dwayne Nathan ANALYTICAL RESEARCH PROGRAM MANAGER Primary Care Provider [phone] Reason for Visit * Reason Comments Med Refill Encounter Details Date Type Department Care Team ([facility] st Contact Info) Description 12/08/2022 Refill [facility] [address] [place] [address] Dwayne Nathan, KANA [address] [place] [address] Social History Tobacco Use Types Packs/Day Years Used Date Smoking Tobacco: Former Pipe Smokeless Tobacco: Never Comments:Hookah only. That w asn't an option on your list. It can't [...] Orientation Lesbian 08/30/2022 8: 42 AM EDT documented as of this encounter Miscellaneous Notes * Telephone Encounter - Tiffanie Garcia - 12/08/2022 1:29 PM EDT Duplicate rx request. Please sign encounter by selecting rx request refuse. RX sent in yesterday documented in this encounter Plan of Treatment Not on file documented as of this encounter Visit Diagnoses Not on filedocumented in this encounter Care Teams Under Sheriff Relationship Specialty Start Date End Date Dwayne Nathan NP [address] [place] [address] PCP - General Family Medicine 05/18/22 documented as of this encounter
== END 2024-05-18 08:57 | disposition home or self-care (01) ==
PROVIDERS: PCP Nurse Practitioner Family; Visit Provider Nurse Practitioner Family
DX: G43.709 Chronic migraine without aura, not intractable, without status migrainosus (principal); G43.109 Migraine with aura, not intractable, without status migrainosus; R25.2 Cramp and spasm
CPT/HCPCS: 99214

== ENCOUNTER 2024-09-06 14:22 | Outpatient (REF) | payer BC, SELFPAY ==
--- NOTE | ~2024-09-06 | US_ITS ---
CLINICAL HISTORY: K80.20 - Calculus of gallbladder without cholecystitis without obstruction US abdomen limited with color Doppler Comparison: US/SR - US ABDOMEN COMPLETE - 10/07/23 11:30 EDT Findings: Visualized pancreas is normal. Tail obscured by bowel gas. Liver is enlarged and echotexture. Right lobe length 22.0 cm. No focal hepatic masses. Common duct 5.1 mm diameter. Gallbladder is physiologically distended. 2.2 and 2.1 cm mobile gallstones. No gallbladder wall thickening. No pericholecystic fluid. No sonographic Davidson sign. Right kidney measures, 13.0 cm in length. Normal cortical width and echotexture. No hydronephrosis calculus or mass. Impression: 1. Hepatomegaly. Mild diffuse increased hepatic echotexture reflecting hepatic steatosis or diffuse hepatocellular disease. 2. Cholelithiasis without evidence of cholecystitis. 3. Partially obscures midline structures This document has been electronically signed by: Darrius Berumen MD on 09/07/2024 11:43:24
--- OUTSIDE RECORDS SUMMARY | 2024-09-06 14:26 | XMS_ITS | Encounter Summary ---
Author Organization [employer] Address [address] [place] [address] [address] [address] Care Team Providers Care Appointment Scheduler Name Role Phone Dwayne Nathan NP Primary Care Provider [phone] Encounter Details Date Type Department Care Team ([facility] st Contact Info) Description 07/27/2024 Telephone [facility] [address] [place] [address] Dwayne Nathan NP [address] [place] [address] Social History Tobacco Use Types Packs/Day Years [...] AM EDT documented as of this encounter Plan of Treatment Not on file documented as of this encounter Visit Diagnoses Not on filedocumented in this encounter Care Teams Appointment Scheduler Relationship Specialty Start Date End Date Dwayne Nathan NP [address] [place] [address] PCP - General Family Medicine 05/18/22 documented as of this encounter
== END 2024-09-06 14:23 | disposition home or self-care (01) ==
LOC: HO.HMGCX 14:22
PROVIDERS: PCP Nurse Practitioner Family; Visit Provider Nurse Practitioner Family
DX: K80.20 Calculus of gallbladder without cholecystitis without obstruction (principal)
CPT/HCPCS: 76705

== ENCOUNTER → 2024-09-06 14:24 | Outpatient (BNV) | payer BC, SELFPAY | PROVIDERS: PCP Nurse Practitioner Family; Visit Provider Radiology Diagnostic Radiology | DX: K80.20 Calculus of gallbladder without cholecystitis without obstruction (principal) | CPT/HCPCS: 76705 ==

== ENCOUNTER 2024-09-13 08:02 | Outpatient (AMB) | payer BC, SELFPAY ==
[2024-09-13 08:04] VITALS: BP 112/80; PULSE 76; RESP 14; TEMP 36.7; O2SAT 98; BMI 43.9
--- NOTE | 2024-09-13 08:04 | A.OFFPC_ITS ---
Vital Signs 09/13/24 08:04 Height 6 ft 3 in Weight 351 lb BMI 43.9 BP 112/80 Blood Pressure Location Lt brachial Position Sitting Respiration 14 Pulse 76 Pulse Source Pulse Oximeter Temp 98.1 F Temp Source Oral Pulse Oximetry (%) 98 Oxygen Delivery Method Room Air Intake Visit Reasons: Annual PE Residency Director Required: No Accompanied by: Self / Same As Patient Allergies No Known Allergies Allergy (Verified 09/13/24 08:31) Medication List - Last Reconciled 09/13/24 by Maxi Quiñones, VETERINARY TECHNOLOGY INSTRUCTOR- clotrimazole-betamethasone 1-0.05 % 1 appl topical BID 2 weeks coQ10 (ubiquinol) (Qunol [place] CoQ10) 100 mg PO BID diclofenac potassium 50 mg PO BID PRN 30 days estradiol 4 patches transdermal 2XW galcanezumab-gnlm (Emgality Pen) 120 mg subcut ONCE 30 days hydrocortisone 2.5% 1 appl OR BID-QID PRN loratadine (Claritin) 10 mg PO DAILY magnesium 500 mg PO DAILY propranolol ER 120 mg PO DAILY 30 days riboflavin (vitamin B2) 400 mg PO DAILY 30 days rizatriptan 5 - 10 mg (0.5 - 1 x 10 mg) PO Q2H PRN 21 days spironolactone 100 mg PO BID ursodiol 500 mg PO BID Tobacco use date assessed: 09/13/24 Dental Screening Dental Screen Date: 09/13/24 Did you have a dental visit in the last 12 months?: Yes Did you have a dental problem in the last 6 months where you did not have access to dental care?: No Was dental information given to patient?: Patient has dentist HPI Annual PE HPI Details History of Present Illness The patient is a 38-year-old female presenting with a migraine that occurred while she was in the waiting room. She does not have her prescribed abortive medication on hand and plans to take it when she returns home. The patient has experienced recurrent gallbladder attacks, which manifest as periodic right upper quadrant discomfort and are managed with ursodiol. She denies symptoms such as vomiting, fevers, chills, chest pain, shortness of breath, abdominal pain, blood in stool, constipation, or diarrhea. Additionally, she has not experienced any suicidal or homicidal ideation. She is undergoing transgender hormone therapy, managed by her previous primary care provider, and has not yet consulted with an front end driver as previously advised. Health Maintenance - A HIDA scan has been ordered to evalua te gallbladder function. Social History - Currently undergoing transgender hormo ne therapy. - Obesity is noted. Review of Systems - Neurological: Reports current migraine . - Gastrointestinal: Reports right upper quadrant discomfort; Denies vomiting, abdominal pain, blood in stool, constipation, diarrhea. - General: Denies fevers, chills. - Respiratory: Denies shortness of breat h. - Cardiovascular: Denies chest pain. - Psychiatric: Denies suicidal or homici trena ideation. Physical Exam General: Cooperative, healthy appearing, comfortable, no acute distress and well developed. Obesity noted. Orientation: Patient oriented x3 Limitations: No limitations Head: Normal to inspection Ears: Hearing grossly normal bilaterally Nose: Normal external nose present Face and sinus: Normal facial exam Eyes: Appearance normal, both eyes and all related structures Neck: Normal visual inspection and Yes full ROM Respiratory: Normal respiratory effort and able to speak in complete sentences. Clear to auscultation bilaterally Cardiovascular: Regular rate and rhythm. Normal S1 and S2 GI: Normal to inspection. Soft to palpation and nontender. Reports some right upper quadrant pain, history of gallbladder attacks. Skin: No rashes or lesions noted Neuro: Patient oriented x3 Extremities: Normal to inspection Results - A HIDA scan was ordered to assess gall bladder function. Plan The patient will take her abortive migraine medication when she returns home. A HIDA scan has been ordered to assess gallbladder function in light of her recurrent discomfort and medication use. Obesity management remains essential. The patient should follow up with an front end driver for specialized hormone therapy management. Currently, no changes are made to her hormone therapy reg imen. Discussion Notes During the consultation, I explained the importance of taking the prescribed abortive medication for her migraine as soon as possible. I discussed the rationale for ordering a HIDA scan to assess her gallbladder function, given her symptoms and history. We reviewed the management of obesity and the need for endocrinological follow-up for her hormone therapy. I emphasized the importance of continued monitoring and management of her health concerns. Patient Instructions - Take your migraine medication as soon as you get home. - Attend the HIDA scan appointment to jorge leijak your gallbladder. - Follow up with an front end driver for hormone therapy management. - Continue managing your weight and disc uss any concerns in future visits. 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 1. Little interest or pleasure in doing things: several days 2. Feeling down, depressed, or hopeless: not at all 3. Trouble falling or staying asleep, or sleeping too much: not at all 4. Feeling tired or having little energy: nearly every day 5. Poor appetite or overeating: not at all 6. Feeling bad about yourself - or that you are a failure or have let yourself or your family down: not at all 7. Trouble concentrating on things, such as reading the newspaper or watching television: not at all 8. Moving or speaking so slowly that other people could have noticed. Or the opposite - being so fidgety or restless that you have been moving around a lot more than usual: not at all 9. Thoughts that you would be better off or of hurting yourself in some way: not at all Total score: 4 Depression Screening Interpretation: Negative Depression Screening Done: Yes 28269 - PHQ-9 Billing: Yes Source: Developed by Drs. Christophe Fuentes, Kerrie Oconnell, Alonzo Avina and colleagues, with an educational remington from [employer]. Thrive Questionnaire Date Thrive assessed: 09/13/24 I am a: Patient What is your living situation today?: I have a steady place to live Within the past 12 months, did the food you bought not last and you didn't have the money to get more?: Never true Within the past 12 months, did you worry whether your food would run out before you got money to buy more?: Never true Do you have trouble paying for medicines?: No Do you have trouble getting transportation to medical appointments?: No Do you have trouble paying your heating and electricity bill?: No Do you have trouble taking care of your child, family member or friend?: No Do you have trouble with day-to-day activities such as bathing, preparing meals, shopping, managing finances, etc.?: Yes Are you currently unemployed and looking for a job?: No Are you interested in more education?: No Please select the resources that you would like help with: None Currently or been in a relationship where the following occur: No concerns reported THRIVE Score: 0 AUDIT C Alcohol Use Questionnaire (AUDIT-C) 1. How often do you have a drink containing alcohol?: 2-4 times a month 2. How many drinks containing alcohol do you have on a typical day when you are drinking?: 1 or 2 3. How often do you have six or more drinks on one occasion?: Never Total Score: 2 Score Reviewed/Action Taken: Yes GILBERTO-7 AMB Questionnaire GILBERTO-7 Date GILBERTO - 7 assessed: 09/13/24 Feeling nervous, anxious, or on edge: 3 = Nearly every day Not being able to stop or control worryin = More than half the days Worrying too much about different things: 0 = Not at all Trouble relaxin = Not at all Being so restless that it is hard to sit still: 0 = Not at all Becoming easily annoyed or irritable: 2 = More than half the days Feeling afraid as if something awful might happen: 3 = Nearly every day Total GILBERTO-7 score (0-4 normal; 5-9 mild; 10-14 moderate; 15-21 severe): 10 Source: Developed by Drs. Christophe Fuentes, Kerrie Oconnell, Alonzo Avina and colleagues, with an educational remington from [employer]. GILBERTO-7 Assessment Billing GILBERTO-7 Assessment Tool: GILBERTO-7 Assessment 44807 (denies any si or hi) Physical exam (Primary Care) Vital Signs: Last Vital Signs Temp 98.1 F 09/13/24 08:04 Pulse 76 09/13/24 08:04 Resp 14 09/13/24 08:04 BP 112/80 09/13/24 08:04 Pulse Ox 98 09/13/24 08:04 Oxygen Delivery Method Room Air 09/13/24 08:04 BMI result Body Mass Index 43.9 Tobacco/Smoking Status: Tobacco use Status Tobacco use date assessed 09/13/24 09/13/24 08:06 Patient Tobacco Use Status Never used Tobacco 09/13/24 08:06 e-Cigarette/Vaping Use Never Used 09/13/24 08:06 PHQ-9: PHQ-9 Score PHQ-9: Total score 4 09/13/24 08:10 Depression Screening Interpretation: Negative Thrive Assessment: Date of Thrive Assessment Date Thrive assessed 09/13/24 09/13/24 08:06 Currently or been in a relationship where the following occur: No concerns reported Coding Level of Care Code Est Pt Prev Care 18-39y(19578) Diagnoses RUQ discomfort 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 Encounter for routine adult physical exam with abnormal findings Z00.01 Additional Codes PHQ-9 - 61729 - PHQ-9 Billing: Yes ([id number]) GILBERTO-7 Assessment Billing - GILBERTO-7 Assessment Tool: GILBERTO-7 Assessment 55467 ([id number]) Assessment & Plan Assessment & Plan (1) RUQ discomfort: Code(s): R10.11 - Right upper quadrant pain Category: Medical (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 Orders: Orders Complete Blood Count Auto Diff Today Z00.00 - Encounter for general adult medical examination without abnormal findings Comprehensive [place]. Panel Fast Today Z00.00 - Encounter for general adult medical examination without abnormal findings NM hepatobiliary w pharm Today R10.11 - Right upper quadrant pain TSH reflex Free T4 Today Z00.00 - Encounter for general adult medical examination without abnormal findings UA CC w/rflx Micro + Cult Today Z00.00 - Encounter for general adult medical examination without abnormal findings Lipid Panel Today Z00.00 - Encounter for general adult medical examination without abnormal findings
--- OUTSIDE RECORDS SUMMARY | 2024-09-13 08:05 | XMS_ITS | Encounter Summary ---
Author Organization [employer] Address [address] [place] [address] [address] [address] Care Team Providers Care Agronomy Manager Name Role Phone Dwayne Nathan NP Primary Care Provider [phone] Encounter Details Date Type Department Care Team ([facility] st Contact Info) Description 07/27/2024 Telephone [facility] [address] [place] [address] Dwayne Nathan NP [address] [place] [address] Social History Tobacco Use Types Packs/Day Years [...] on filedocumented in this encounter Care Teams Agronomy Manager Relationship Specialty Start Date End Date Dwayne Nathan NP [address] [place] [address] PCP - General Family Medicine 05/18/22 documented as of this encounter
== END 2024-09-13 08:26 | disposition home or self-care (01) ==
LOC: HO.HMCC 08:03
PROVIDERS: PCP Nurse Practitioner Family; Visit Provider Nurse Practitioner Family
DX: Z00.00 Encounter for general adult medical examination without abnormal findings (principal); R10.11 Right upper quadrant pain; F64.0 Transsexualism; Z00.01 Encounter for general adult medical examination with abnormal findings

== ENCOUNTER → 2024-09-13 08:02 | Outpatient (BNVA) | payer BC, SELFPAY | PROVIDERS: PCP Nurse Practitioner Family; Visit Provider Nurse Practitioner Family | DX: Z00.01 Encounter for general adult medical examination with abnormal findings (principal); R10.11 Right upper quadrant pain; F64.0 Transsexualism | CPT/HCPCS: 96127 ==

== ENCOUNTER → 2024-09-28 07:49 | Outpatient (REF) | payer BC, SELFPAY ==
--- NOTE | ~2024-09-28 | NM_ITS ---
EXAMINATION: NM HEPATOBILIARY WITH PHARM HISTORY: R10.11 - Right upper quadrant pain. TECHNIQUE: An hepatobiliary scan was performed following the intravenous administration of 5 mCi technetium 99m-mebrofenin. Sequential images were obtained over 1 hour. Subsequently, the patient received 3.2 microgram of IV CCK over 30 minutes and additional imaging was performed. COMPARISON: Correlation is made with an abdominal ultrasound dated 09/06/2024. FINDINGS: There is normal uptake and excretion of the radiopharmaceutical by the liver. Gallbladder activity is noted at 14 minutes. Common bile duct activity is seen at 6 minutes. Small bowel activity is noted at 8 minutes. After the administration of intravenous CCK, the estimated gallbladder ejection fraction is 30%, which is decreased (normal 35-80%). NM/NM hepatobiliary w pharm IMPRESSION: Normal hepatobiliary scan without evidence of cystic duct obstruction. Low gallbladder ejection fraction, compatible with biliary dyskinesia. Electronically signed by: Christophe Garcia MD 09/28/2024 11:04 AM EDT
--- OUTSIDE RECORDS SUMMARY | 2024-09-28 07:52 | XMS_ITS | Encounter Summary ---
Author Organization [employer] Address [address] [place] [address] [address], [place] [address] Care Team Providers Care Labeling Strategist Name Role Phone Dwayne Nathan NP Primary Care Provider Encounter Details Date Type Department Care Team ([facility] st Contact Info) Description 07/27/2024 Telephone [facility] [address] [place] [address] Dwayne Nathan NP [address] [place] [address] Social History Tobacco Use Types Packs/Day Years [...] on filedocumented in this encounter Care Teams Labeling Strategist Relationship Specialty Start Date End Date Dwayne Nathan NP [address] [place] [address] PCP - General Family Medicine 05/18/22 documented as of this encounter
== END ==
LOC: HO.NUCMED 07:49
PROVIDERS: PCP Nurse Practitioner Family; Visit Provider Nurse Practitioner Family
DX: R10.11 Right upper quadrant pain (principal)
CPT/HCPCS: 78227; A9537; J2805

== ENCOUNTER → 2024-09-28 07:51 | Outpatient (BNV) | payer BC, SELFPAY | PROVIDERS: PCP Nurse Practitioner Family; Visit Provider Radiology Diagnostic Radiology | DX: R10.11 Right upper quadrant pain (principal) | CPT/HCPCS: 78227 ==

== ENCOUNTER 2024-11-15 09:29 | Outpatient (AMB) | payer BC, SELFPAY ==
--- NOTE | 2024-11-15 09:37 | A.OFFVIS_ITS ---
Vital Signs 11/15/24 09:38 Height 6 ft 3 in Weight 350 lb 8 oz BMI 43.8 BP 120/78 Blood Pressure Location Lt brachial Position Sitting Pulse 70 Pulse Source Pulse Oximeter Pulse Oximetry (%) 98 Oxygen Delivery Method Room Air Intake Visit Reasons: 6 mo follow up Intake Note: Patient presents follow up migraine medication. Patient states migraines are about the same. Allergies No Known Allergies Allergy (Verified 11/15/24 09:40) Medication List - Last Reconciled 11/15/24 by DEIDRA Frederick clotrimazole-betamethasone 1-0.05 % 1 appl topical BID 2 weeks coQ10 (ubiquinol) (Qunol [place] CoQ10) 100 mg PO BID diclofenac potassium 50 mg PO BID PRN 30 days estradiol 4 patches transdermal 2XW galcanezumab-gnlm (Emgality Pen) 120 mg subcut ONCE 30 days hydrocortisone 2.5% 1 appl [place] BID-QID PRN loratadine (Claritin) 10 mg PO DAILY magnesium 500 mg PO DAILY propranolol ER 120 mg PO DAILY 30 days riboflavin (vitamin B2) 400 mg PO DAILY 30 days rizatriptan 5 - 10 mg (0.5 - 1 x 10 mg) PO Q2H PRN 21 days spironolactone 100 mg PO BID ursodiol 500 mg PO BID HPI Comments Details: 38-yr-old female presents for f/u visit for migraine. Pt denies any significant interval medical changes. Pt reports she is continuing to 14 to 28 migraine days per month. Since last visit, patient has started Emgality, however patient states she is not sure if it is having a significant effect, possibly it is reducing the severity of her migraine. She is compliant with propranolol ER. Rizatriptan helps, but cause some muscle soreness, which she is responding better to diclofenac. Patient does endorse intermittent constipation. Denies recent leg cramps Baseline headache characteristics: Prodrome symptoms: May feel clumsy and confused a few hours before headache Aura: Seeing lights, pot/streak of bright light. Rarely can see crescent of light. Pain intensity: Lvpy-Syc-Hcgbnl. Location, quality, characteristics: Usually behind right eye, less often left eye, or or center. Pressure. Associated symptoms: Photophobia, phonophobia, dizziness, difficulty concentrating, word finding difficulties, fatigue, yawning, activity intolerance Postdrome: Slowly subsides, ebbs and flows. [facility] Medical History Transgender woman on hormone therapy HLD (hyperlipidemia) Surgical History No pertinent past surgical history Family History Father HTN (hypertension) Social History Housing: House Alcohol intake: current Patient Tobacco Use Status: Never used Tobacco e-Cigarette/Vaping Use: Never Used service: No Current occupational status: employed Current occupational exposures/hazards: No Cognitive needs: No Hearing needs: No Vision needs: No Physical Exam Vital Signs: Last Vital Signs Pulse 70 11/15/24 09:38 BP 120/78 11/15/24 09:38 Pulse Ox 98 11/15/24 09:38 Oxygen Delivery Method Room Air 11/15/24 09:38 BMI result Body Mass Index 43.8 Const General: cooperative and no acute distress Orientation/consciousness: patient oriented x3 Resp Effort & Inspection: normal respiratory effort and able to speak in complete sentences Neuro Other: Photophobic Steady gait with cane. General: patient oriented x3 Cranial nerves: Yes CN's II-XII intact bilaterally Cognition (Neuro): normal cognition Psych Appearance: grossly normal Mental Status: mental status grossly normal Speech and movement: Normal speech and movement present Affect: normal affect Attitude: cooperative Assessment & Plan Assessment & Plan (1) Chronic migraine without aura: Code(s): G43.709 - Chronic migraine without aura, not intractable, without status migrainosus Category: Medical Qualifiers: Status migrainosus presence: without status migrainosus Intractability: not intractable Qualified Code(s): G43.709 - Chronic migraine without aura, not intractable, without status migrainosus (2) Migraine with aura: Code(s): G43.109 - Migraine with aura, not intractable, without status migrainosus Category: Medical Qualifiers: Status migrainosus presence: without status migrainosus Intractability: not intractable Qualified Code(s): G43.109 - Migraine with aura, not intractable, without status migrainosus (3) Muscle cramps: Code(s): R25.2 - Cramp and spasm Category: Medical Plan For overall headache management: Continue to optimize good self-care, including but not limited to maintaining a healthy diet, adequate fluid intake, adequate sleep, and engaging in regular physical activity. * For headache triggers: * Track headaches, especially after any treatment regimen changes. Migraine [employer] is one of many headache tracking apps. * Light sensitivity tips: * You may try blue light filtering glasses, green glasses, green light therapy.. * Avoid wearing sunglasses inside. * Information shared on neuromodulation devices, such as cephaly and Nerivio, which can be use as adjunctive preventative therapies, as well as for acute migraine treatment * Patient will review, and let us know if she is interested in pursuing these. ? For acute headache treatment: Is important to take acute medications at the first sign of headache, however stressed importance of avoiding acute medication overuse (especially with combined headache medications). Continue Rizatriptan 10mg prn, MR in 2 hrs. May adjunct with NSAID for muscle aches. Continue diclofenac 50 mg p.o. at onset of migraine, be take with rizatriptan, may repeat in 12 hours, max of 100 mg per day. Previous acute migraine medication trials: Sumatriptan 50mg- ineffective. Sumatriptan 100mg tab- not always effective and causes drowsiness/muscle aches. Acute migraine medication contraindications: None at this time ? For headache prevention medication: Continue Riboflavin 400mg qam Continue Magnesium 500mg qd. Continue Propranolol ER 120mg qd- would not increase further d/t HR in 60s. Discontinue topiramate 25 mg q.h.s.-cause irritability. Discontinue Emgality 120mg/ml auto-injection: Start Atogepant (Qulipta) 60mg daily at bedtime. Potential side effects include but are not limited to drowsiness, nausea, constipation, weight loss. * We will check status of CBC and CMP prior to patient starting atogepant. Previous migraine prevention medication trials: topiramate 25 mg q.h.s.-cause irritability Migraine prevention medication contraindications: Would avoid Aimovig due to intermittent constipation and leg cramps. ? Pt to follow-up in 6 months or sooner prn. Orders: Orders Complete Blood Count Auto Diff Today E66.01 - Morbid (severe) obesity due to excess calories, E78.5 - Hyperlipidemia, unspecified, K76.0 - Fatty (change of) liver, not elsewhere classified Comprehensive [place]. Panel Fast Today E66.01 - Morbid (severe) obesity due to excess calories, E78.5 - Hyperlipidemia, unspecified, K76.0 - Fatty (change of) liver, not elsewhere classified Medications: New atogepant 60 mg PO DAILY 30 tabs 6RF 30 days Refilled diclofenac potassium 50 mg PO BID PRN 60 tabs 1RF pain 30 days riboflavin (vitamin B2) 400 mg PO DAILY 30 tabs 6RF 30 days rizatriptan max 2 tabs per day or 4 tabs per week 5 - 10 mg (0.5 - 1 x 10 mg) PO Q2H PRN 12 tabs 6RF migraine headache 21 days Discontinued galcanezumab-gnlm (Emgality Pen) Maintenance dose of 120 mg subcu q.month. Discontinued Reason: Doctor's Order 120 mg subcut ONCE 30 days 1 mL 6RF Coding Level of Care Code Est Pt Level 4 (19850) Diagnoses Chronic migraine without aura without status migrainosus, not intractable G43.709 Status migrainosus presence: without status migrainosus Intractability: not intractable Migraine with aura and without status migrainosus, not intractable G43.109 Status migrainosus presence: without status migrainosus Intractability: not intractable Muscle cramps R25.2
[2024-11-15 09:38] VITALS: BP 120/78; PULSE 70; O2SAT 98; BMI 43.8
--- OUTSIDE RECORDS SUMMARY | 2024-11-15 09:51 | XMS_ITS | Encounter Summary ---
Author Organization [employer] Address [address] [place] [address] [address] [place] [address] Care Team Providers Care Can Line Examiner Name Role Phone Dwayne Nathan REHABILITATION MEDICINE PHYSICIAN Primary Care Provider + [phone] Reason for Visit * Reason Comments Med Refill Encounter Details Date Type Department Care Team ([facility] st Contact Info) Description 12/08/2022 Refill [facility] [address] [place] [address] Dwayne Nathan, REHABILITATION MEDICINE PHYSICIAN [address] [place] [address] Social History Tobacco Use Types Packs/Day Years [...] on filedocumented in this encounter Care Teams Can Line Examiner Relationship Specialty Start Date End Date Dwayne Nathan NP [address] [place] [address] PCP - General Family Medicine 05/18/22 documented as of this encounter
== END 2024-11-15 10:37 | disposition home or self-care (01) ==
LOC: HO.HSMS 09:29
PROVIDERS: PCP Nurse Practitioner Family; Visit Provider Nurse Practitioner Family
DX: G43.709 Chronic migraine without aura, not intractable, without status migrainosus (principal); G43.109 Migraine with aura, not intractable, without status migrainosus; R25.2 Cramp and spasm
CPT/HCPCS: 99214

== ENCOUNTER 2024-11-15 09:29 | Outpatient (REF) | payer BC, SELFPAY ==
[2024-11-15 13:14] LABS: MANUAL DIFF FLAG NO
[2024-11-15 13:26] LABS: Hematocrit 43.1 % (37.0-47.0); Hemoglobin 14.2 g/dl (12.0-16.0); Imm Gran Abs Auto 0.06 X10*3/uL (0.00-0.03); Imm Gran Pct Auto 0.7 % (0.0-0.4); Lymphocytes Absolute Auto 2.3 X10*3/uL (1.2-4.9); Mean Corpuscular HGB Conc 32.9 g/dl (31.0-35.0); Mean Corpuscular Hemoglobin 29.0 pg (27.0-33.0); Mean Corpuscular Volume 88.1 fL (80.0-98.0); NRBC Abs Auto 0.000 X10*3/uL (0.0-0.012); NRBC Pct Auto 0.0 /100WBC (0.0-0.2); Platelet Count 314 X10*3/uL (160-400); Red Blood Count 4.89 X10*6/uL (4.20-5.50); White Blood Count 9.0 X10*3/uL (4.8-10.8)
[2024-11-15 13:49] LABS: Alanine Aminotransferase 69 U/L (0-31); Albumin Level 4.6 g/dL (3.5-5.0); Alkaline Phosphatase 75 U/L (39-117); Anion Gap 12 (12-20); Aspartate Amino Transferase 38 U/L (5-31); Blood Urea Nitrogen 10 mg/dL (9-16); Calcium 9.2 mg/dL (8.4-10.2); Carbon Dioxide 27 mmol/L (22-29); Chloride 106 mmol/L (96-108); Estimated Glomerular Filt Rate > 60; Potassium 4.6 mmol/L (3.3-5.1); Sodium 140 mmol/L (135-145); Total Protein 7.6 g/dL (6.5-8.0)
== END 2024-11-15 09:30 | disposition home or self-care (01) ==
LOC: HO.HKASLDS 09:29
PROVIDERS: PCP Nurse Practitioner Family; Visit Provider Nurse Practitioner Family
DX: G43.709 Chronic migraine without aura, not intractable, without status migrainosus (principal); G43.109 Migraine with aura, not intractable, without status migrainosus; R25.2 Cramp and spasm; E78.5 Hyperlipidemia, unspecified; E66.01 Morbid (severe) obesity due to excess calories; K76.0 Fatty (change of) liver, not elsewhere classified; Z68.41 Body mass index [BMI] 40.0-44.9, adult; Z79.1 Long term (current) use of non-steroidal anti-inflammatories (NSAID); Z79.899 Other long term (current) drug therapy
CPT/HCPCS: 36415; 80053; 85025